=== PATIENT | female | born 1995 | race Caucasian/White ===

== ENCOUNTER 2017-03-11 04:20 | Emergency (ER) | payer OTHER ==
[~2017-03-11] VITALS: Ht 160 cm; Wt 68.5 kg
[2017-03-11 04:29] VITALS: Ht 160 cm; Wt 68.5 kg
[2017-03-11] MEDS ORDERED: CYCL-319 PO (04:53)
[2017-03-11] MEDS ORDERED: IBUP-1542 PO (04:53)
[2017-03-11] MEDS ORDERED: HYDR-906 PO (04:53)
[2017-03-11] MEDS ORDERED: DIAZEPAM 5 MG/ML SYG IM ONE (05:00)
--- NOTE | 2017-03-11 05:10 | ERD ---
ER Documentation Chief Complaint Date/Time DATE: 03/11/17 TIME: 05:06 Chief Complaint Pt reports neck pain upon waking HPI 22-year-old female presents in emergency department for complains of left-sided neck pain is started this morning, she woke up with a pain in the left neck, sharp pain, 6/10 , unable to completely move the left neck because of pain, feels stiffness on the left side of the neck. Patient denies any trauma on affected area. Patient denies any numbness or tingling. ROS All systems reviewed and are negative except as per history of present illness. Medications Home Meds Active Scripts Hydrocodone/Acetaminophen ([place] 5-325 Tablet) 1 Each Tablet, 1 TAB PO Q6H Y for SEVERE PAIN LEVEL 7-10, #20 TAB Prov:GLADYS LICONA NP 03/11/17 Cyclobenzaprine Hcl* (Cyclobenzaprine Hcl*) 10 Mg Tablet, 10 MG PO TID, #15 TAB Prov:GLADYS LICONA NP 03/11/17 Ibuprofen* (Motrin*) 600 Mg Tab, 600 MG PO Q6H Y for PAIN AND OR ELEVATED TEMP, #30 TAB Prov:GLADYS LICONA NP 03/11/17 Allergies Allergies: Coded Allergies: No Known Allergy (Unverified , 11/14/13) PMhx/Soc Medical and Surgical Hx: pt denies Medical Hx, pt denies Surgical Hx Hx Alcohol Use: No Hx Substance Use: No Hx Tobacco Use: No Smoking Status: Never smoker FmHx Family History: No coronary disease, No diabetes, No other Physical Exam Vitals Vital Signs Date Time Temp Pulse Resp B/P Pulse Ox O2 Delivery O2 Flow Rate FiO2 03/11/17 04:29 98.3 99 16 126/63 97 Physical Exam GENERAL: The patient is well developed and appropriate for usual state of health, in no apparent distress. NECK: Tenderness on palpation of muscle spasms noted of the sternocleidomastoid of the left neck area. Limitation of movement because of pain. CHEST: Clear to auscultation bilaterally. There are no rales, wheezes or rhonchi. HEART: Regular rate and rhythm. No murmurs, clicks, rubs or gallops. No S3 or S4. ABDOMEN: Soft, nontender and nondistended. Good bowel sounds. No rebound or guarding. No gross peritonitis. No gross organomegaly or masses. No Burgess sign or McBurney point tenderness. BACK: No midline or flank tenderness. EXTREMITIES: Equal pulses bilaterally. There is no peripheral clubbing, cyanosis or edema. No focal swelling or erythema. Full range of motion. Grossly neurovascularly intact. NEURO: Alert and oriented. Cranial nerves 2-12 intact. Motor strength in all 4 extremities with 5/5 strength. Sensation grossly intact. Normal speech and gait. SKIN: There is no apparent rash or petechia. The skin is warm and dry. HEMATOLOGIC AND LYMPHATIC: There is no evidence of excessive bruising or lymphedema. No gross cervical, axillary, or inguinal lymphadenopathy. Results 24 hrs Current Medications Medications (Trade) Dose Ordered Sig/Мария Route PRN Reason Start Time Stop Time Status Last Admin Dose Admin Diazepam (Valium) 5 mg ONCE ONCE IM 03/11/17 05:00 03/11/17 05:01 DC Valium was given for muscle spasms. Procedures/MDM Medical decision making: Patient's symptoms of cystitis consistent with neck muscle strain. No symptoms of any meningitis, no fever, negative Kernig's sign or Brudzinski's sign. No symptoms of any acute bacterial infection. Low suspicion for any fractures, did not have any trauma on affected area. No midline tenderness noted. Prescription was given for Flexeril, [place], ibuprofen , is advised to apply warm compress and affected area, patient is advised to return to emergency department for any worsening symptoms. Disposition: Home. Stable. Departure Diagnosis: Primary Impression: Neck strain Encounter type: initial encounter Qualified Code: S16.1XXA - Strain of neck muscle, initial encounter Condition: Stable Patient Instructions: Neck Sprain/Strain GLADYS LICONA NP Mar 11, 2017 05:10
[2017-03-11 05:26] VITALS: BP 138/76; PULSE 98; RESP 16; TEMP 98.6
== END 2017-03-11 06:49 | disposition home or self-care (01) ==
LOC: FTE 04:20
DX: S16.1XXA Strain of muscle, fascia and tendon at neck level, initial encounter (principal); X58.XXXA Exposure to other specified factors, initial encounter; Y92.9 Unspecified place or not applicable
CPT/HCPCS: 96372; J3360; Z7502